=== PATIENT | female | born 1935 | race Caucasian/White ===

== ENCOUNTER 2024-10-16 16:07 | Emergency (ER) | payer OTHER, SELFPAY ==
[2024-10-16 16:16] VITALS: BP 155/78
--- NOTE | 2024-10-16 19:29 | ED.GENMED ---
History of Present Illness
General
Chief Complaint: Fall
Source: patient and family
Exam Limitations: none
Time Seen by Provider: 10/16/24 18:10
Nursing documentation reviewed up to this point in time: agreed with
History of Present Illness
History of Present Illness:
89-year-old female presenting to the emergency department today with concerns of ongoing discomfort to the left hip since a fall about 2 weeks ago. Was seen at [facility] and found to have 2 rib fractures that he feels much better at this
point. Has had some trouble walking around due to discomfort to the left buttock region. Has been able to walk. Denies numbness weakness changes in bladder or bowel function. No chest pain shortness of breath abdominal pain
Past History
Past History
ED Past Medical History: Other (History of palpitations)
ED Past Surgical History: Cholecystectomy
Social History
Living: with family
Employment: Retired
Review of Systems
Review of Systems
Allergies reviewed?: Yes
All Other Systems: ROS reviewed and negative except as documented in HPI and ROS
Phy Exam
Physical Exam
Physical Exam:
GENERAL: Alert , in no apparent distress
EYE: pupils equal and reactive
NECK: Supple, no significant adenopathy.
ENT: o/p clr, mmm.
CARDIAC: Regular rate and rhythm .
LUNGS: Clear breath sounds bilaterally, no acute respiratory distress, no wheezes/rales/rhonchi
ABDOMEN: Soft, without focal tenderness, no r/g, no cvat
NEUROLOGICAL: Alert and oriented, no focal neuro deficits
SKIN: Warm and dry, skin intact.
MUSCULOSKELETAL: No edema, well perfused.
PSYCH: Normal and appropriate interaction.
Course
Orders/Labs/Results
Orders:
Orders
10/16/24 16:18
Pelvis, 1 or 2 Views CR [CR Pelvis - 1 Or 2 Views ] Urgent
Comment:
Reason For Exam: pain from fall
10/16/24 16:20
CR Shoulder - Right Min 2 View Urgent
Comment:
Reason For Exam: fall
Lumbar Spine Complete, 4 View [CR Lumbar Spine Comp Min 4 Vw*] Urgent
Comment:
Reason For Exam: fall
Vital Signs
Initial and Last Documented VS:
Initial Vital Signs
Temp Pulse Resp BP Pulse Ox
98.4 F 74 19 155/78 96
10/16/24 16:16 10/16/24 16:16 10/16/24 16:16 10/16/24 16:16 10/16/24 16:16
Last Documented Vital Signs
Temp Pulse Resp BP Pulse Ox
98.4 F 74 19 155/78 96
10/16/24 16:16 10/16/24 16:16 10/16/24 16:16 10/16/24 16:16 10/16/24 16:16
MDM/Problems Addressed
MDM/Problems Addressed:
89-year-old female presenting to the emergency department today with concerns of ongoing discomfort to the left buttock after a fall out of her bed 2 weeks ago. Was seen initially at [facility] and had x-rays that showed 2 broken ribs but
otherwise been sent home does feel better at this point. Discomfort with ambulation but has been able to walk. Here x-rays of the hip pelvis low back and shoulder without evidence of fracture. Patient with likely soft tissue injury. Patient with
some increased discomfort with certain movements while here but otherwise able to walk. Stable for outpatient management return precautions given.
*Critical Care Note
Total Time (30-74mins, 75-104mins- exclusive of procedures): Not Applicable
ED Attending Note
-
Portions of this chart may have been created with voice recognition software.� Occasional wrong word or��sound alike� substitutions may have occurred due to the inherent limitations of voice recognition software.
Discharge Plan
Departure
Patient Disposition: Home (Routine Discharge)
Date of Disposition: 10/16/24
Time of Disposition: 19:31
Patient with high blood pressure during this ER visit?: No
Condition: Good
Covid-19: Not Applicable
Discharge Problem:
Buttock pain
Instructions: Preventing falls in adults
Prescriptions:
New
diclofenac sodium [Voltaren Arthritis Pain] 1 % gel
2 g topical QID Qty: 100 0RF
No Action
metoprolol succinate 25 MG tablet extended release 24 hr
25 mg PO DAILY
ascorbic acid (vitamin C) [Vitamin C] 500 MG tablet
500 mg PO DAILY
Patient Comments:
patient states she takes 1200mg daily
multivitamin 1 EACH capsule
1 ea PO DAILY
cholecalciferol (vitamin D3) [Vitamin D3] 1,000 UNIT tablet
1,000 unit PO DAILY
Referrals:
Charles Haley MD [Family Provider] -
Activity Restrictions/Additional Instructions:
You came to the emergency department today after having ongoing discomfort. Here you had x-rays without signs of emergent injury. Please follow close with the primary care doctor. Return to the emergency department any worsening, new or
concerning symptoms.
Interventions
Interventions:
*Risk Screen - Suicide Last Done: 10/16/24 16:16
*General Assessment Last Done: 10/16/24 16:16
*Neglect/Abuse Screening Last Done: 10/16/24 16:16
*ED COVID-19 Vaccine History Last Done: 10/16/24 17:10
ED-Musculoskeletal Assessment Last Done: 10/16/24 17:07
ED- Neurological Assessment Last Done: 10/16/24 17:07
ED-Skin Assessment Last Done: 10/16/24 17:07
Discharge Date and Time
Print Language: JAPANESE
[2024-10-16 19:37] VITALS: BP 150/80
== END 2024-10-16 19:38 | disposition home or self-care (01) ==
LOC: EMR 16:07
PROVIDERS: EMERGENCY PHYSICIAN Student in an Organized Health Care Education/Training Program; FAMILY PHYSICIAN Internal Medicine
DX: M79.18 Myalgia, other site (principal); M25.552 Pain in left hip
CPT/HCPCS: 99283; 72110; 72170; 73030